=== PATIENT | male | born 1990 | race African-American/Black ===

== ENCOUNTER 2022-04-11 05:27 | Emergency (ER) | payer BC, OTHER ==
[~2022-04-11] VITALS: Ht 175 cm; Wt 72.6 kg
[2022-04-11] MEDS ORDERED: FAMOTIDINE 20 MG (PEPCID) TABLET PO STA (06:13)
[2022-04-11] MEDS ORDERED: predniSONE 20 MG TAB PO ONE (06:15)
--- NOTE | 2022-04-11 06:21 | ED General ---
General Chief Complaint: Allergic Reaction Stated Complaint: POSS ALLERGIC REACTION Nursing Triage Note: TO ED VIA POV AND AMBULATORY TO ROOM 6 AND STATES HIS "FACE IS SWOLLEN AND BODY IS RED", GENERALIZED HIVES, SOA. STATES STARTED AT 0500 AFTER EATING PEANUT BUTTER AND JELLY SANDWHICH AND THEN STATES, "I'M NOT ALLERGIC TO EITHER OF THOSE". PT ALSO STATES HE WAS "WORKING ON HIS BIKE" PRIOR TO SX. STATES HE TOOK 1 BENADRYL AFTER SYMPTOMS STARTED WITHOUT RELIEF. PT IS DIFFICULT TO OBTAIN ANSWERS TO TRIAGE QUESTIONS FROM. History of Present Illness Date Seen by Provider: Apr 11, 2022 Time Seen by Provider: 06:04 Initial Comments Here with report of hives this morning at about 5 AM. This was after eating a peanut butter and jelly sandwich. He states that he is not allergic to peanut butter. He did take a Benadryl at that time. He was also working on his motorcycle at the same time putting on the brakes. None of these actions are anything new. He states that he had hives over his whole body and he felt swelling of his face. The itching has subsequently markedly improved. Denies any significant allergies. He does vape but does not do anything else. He states that he wanted to be here to be checked out because he did not want to have a medical emergency and not have been seen and he has no phone at home and wanted to make sure that everything was okay. Timing/Duration: 1 Hour Severity: Mild, Moderate Associated Systoms: No Cough; Rash; No Shortness of Air Allergies and Home Medications Allergies Coded Allergies: No Known Drug Allergies (Unverified , 04/11/22) Patient Home Medication List Home Medication List Reviewed: Yes Review of Systems Review of Systems Constitutional: see HPI; No fever EENTM: mouth swelling; No nose congestion, No throat pain, No throat swelling Respiratory: No cough, No short of breath Gastrointestinal: No nausea, No vomiting Skin: pruritus, rash Past Lpcifya-Afuaht-Iabbau Hx Patient Social History Tobacco Use?: Yes Use of E-Cig and/or Vaping dev: Yes E-Cig or Vaping type used: Nicotine Past Medical History Surgeries: No Family Medical History Reviewed Nursing Family Hx No Pertinent Family Hx Physical Exam Vital Signs Vital Signs - First Documented 04/11/22 05:44 Temp 36.5 Pulse 121 Resp 16 B/P (MAP) 131/86 (101) Pulse Ox 98 O2 Delivery Room Air Capillary Refill : Less Than 3 Seconds Height, Weight, BMI Height: '" Weight: lbs. oz. kg; 23.00 BMI Method: General Appearance: No Apparent Distress, WD/WN HEENT: PERRL/EOMI, Pharynx Normal, Other (Patient reports that he feels slightly swollen to his lips and face but there is no difficulty swallowing, airway issues or pharyngeal swelling noted on exam.) Neck: Non Tender, Supple Respiratory: Lungs Clear, Normal Breath Sounds Cardiovascular: No Murmur, Tachycardia Neurologic/Psychiatric: Alert, Oriented x3 Skin: Normal Color, Warm/Dry; No Rash; Other (Patient does note that the hives have resolved and denies itching currently. I do not see any hives on exam.) Progress/Results/Core Measures Suspected Sepsis SIRS Temperature: Pulse: 121 Respiratory Rate: 16 Blood Pressure 131 /86 Mean: 101 Results/Orders My Orders Orders - KEVON VELA MD Famotidine Tablet (Pepcid Tablet) (04/11/22 06:13) Prednisone Tablet (Deltasone Tablet) (04/11/22 06:15) Vital Signs/I&O 04/11/22 05:44 Temp 36.5 Pulse 121 Resp 16 B/P (MAP) 131/86 (101) Pulse Ox 98 O2 Delivery Room Air Capillary Refill : Less Than 3 Seconds Blood Pressure Mean: 101 Progress Note : Progress Note Seen and evaluated. It does appear that he has had resolution of his hives after Benadryl. Unsure of inciting event but may have been the peanut butter sandwich as he had eaten that right before this started. Given this may be related to food, we will go ahead and initiate prednisone 40 mg p.o. and famotidine 20 mg p.o. now and I will continue the prednisone for a few more days. No significant airway issues noted or reported. We did discuss avoiding peanut butter. We did discuss EpiPen but will hold on that as this does not appear to be anaphylaxis. I did discuss with him about getting primary care doctor to discuss this further as he may need further prescriptions and evaluation later. He agreed with all of this. Discharged home with return precautions. Patient verbalized understanding instructions and agreement with plan. Departure Impression Primary Impression: Allergic reaction Qualified Codes: T78.40XA - Allergy, unspecified, initial encounter Disposition: HOME, SELF-CARE Condition: Improved Departure-Patient Inst. Decision time for Depature: 06:21 Referrals: NO,LOCAL PHYSICIAN (PCP/Family) Primary Care Physician Patient Instructions: Allergic Reaction ED Add. Discharge Instructions: All discharge instructions reviewed with patient and/or family. Voiced understanding. You may take nobz-[id number] Benadryl/diphenhydramine 25 mg every 6 hours as needed for itching. You may take tyfl-mma-gpgtqop Pepcid or the generic famotidine, 20 mg once or twice daily and you may take this over the next 3 to 4 days as needed. Take other medications as prescribed. You should follow-up with eye doctor of your choosing for recheck and further evaluation and to establish care. Return for increased swelling, difficulty with breathing or swallowing, wheezing, persistent hives, nausea, vomiting, abdominal pain or other concerns as needed. Scripts Prednisone (Prednisone) 20 Mg Tab 40 MG PO DAILY, #6 TAB 0 Refills Prov: KEVON VELA MD 04/11/22 KEVON VELA MD Apr 11, 2022 06:21
[2022-04-11] MEDS ORDERED: PRD20T PO (06:23)
[2022-04-11 06:29] VITALS: BP 133/81
== END 2022-04-11 06:29 | disposition home or self-care (01) ==
LOC: ER 05:30
DX: T78.1XXA Other adverse food reactions, not elsewhere classified, initial encounter (principal); F17.290 Nicotine dependence, other tobacco product, uncomplicated
CPT/HCPCS: 99283

== ENCOUNTER 2022-04-17 22:29 | Observation (INO) | payer BC ==
[~2022-04-17] VITALS: Ht 175 cm; Wt 72.5 kg
[~2022-04-17 22:29] MED LIST: PRD20T PO
[2022-04-17] MEDS ORDERED: fentaNYL INJ 100 MCG/2 ML AMP ONE (22:44)
[2022-04-17] MEDS ORDERED: ONDANSETRON 4 MG/2 ML (SDV) Z0FRAN ONE (22:44)
[2022-04-17 22:47] LABS: HEMATOCRIT 43 % (40-54); MEAN CORPUSCULAR HEMOGLOBIN 30 pg (25-34); MEAN CORPUSCULAR HGB CONC 35 g/dL (32-36); MEAN CORPUSCULAR VOLUME 86 fL (80-99); MEAN PLATELET VOLUME 9.6 fL (9.0-12.2); PLATELET COUNT 312 10^3/uL (130-400)
[2022-04-17 22:58] LABS: ALBUMIN 4.2 GM/DL (3.2-4.5); CHLORIDE 105 MMOL/L (98-107); SODIUM 140 MMOL/L (135-145)
[2022-04-17] MEDS ORDERED: ONDANSETRON 4 MG/2 ML (SDV) Z0FRAN IVP ONE (23:00)
[2022-04-17] MEDS ORDERED: fentaNYL INJ 100 MCG/2 ML AMP IVP ONE ×2 (23:00→23:15)
[2022-04-17] MEDS ORDERED: LACTATED RINGERS 1,000 ML IV SCH (23:00)
[2022-04-17] MEDS ORDERED: TETANUS,DIPTH,PERTUSS P/F (BOOSTRIX) 0.5 ML VIAL IM ONE (23:00)
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
[2022-04-17 23:01] LABS: GLUCOSE 128 MG/DL (70-105); TOTAL PROTEIN 6.4 GM/DL (6.4-8.2)
[2022-04-17 23:02] LABS: BILIRUBIN,TOTAL 0.5 MG/DL (0.1-1.0); CARBON DIOXIDE 23 MMOL/L (21-32)
[2022-04-17 23:04] LABS: ALKALINE PHOSPHATASE 55 U/L (40-136); GFR ESTIMATED 92
[2022-04-17 23:05] LABS: BUN/CREATININE RATIO 10
[2022-04-17 23:06] LABS: BILIRUBIN,DIRECT 0.2 MG/DL (0.0-0.3); BILIRUBIN,INDIRECT 0.3 MG/DL
[2022-04-17 23:07] LABS: ALANINE AMINOTRANSFERASE 83 U/L (0-55)
[2022-04-18] MEDS ORDERED: LIDOCAINE 1% INJ 10 ML VIAL ONE (00:12)
[2022-04-18] MEDS ORDERED: HOLD METFORMIN - RECEIVED CONTRAST 20 ML VIAL IV SCH (00:15)
[2022-04-18] MEDS ORDERED: NS 100 ML (IVPB) BAG IV ONE (00:15)
[2022-04-18] MEDS ORDERED: IOHEXOL 350 MG/ML 100 ML (OMNIPAQUE 350) VIAL IV ONE (00:15)
[2022-04-18] MEDS ORDERED: LIDOCAINE 1% INJ 30 ML (XYLOCAINE) VIAL INJ ONE (00:15)
[2022-04-18] MEDS ORDERED: KETOROLAC 15 MG/ML VIAL IVP ONE (02:00)
[2022-04-18] MEDS ORDERED: TETANUS,DIPTH,PERTUSS P/F (BOOSTRIX) 0.5 ML VIAL IM ONE (02:57)
[2022-04-18] MEDS ORDERED: NS IV 1000 ML 1,000 ML ONE (03:29)
[2022-04-18 03:30] VITALS: BP 128/76
[2022-04-18] MEDS: NS IV 1000 ML 1,000 ML IV SCH ×2 (03:38→13:37)
[2022-04-18] MEDS ORDERED: HYDROcodone/APAP 5 MG/325 MG (LORTAB) TAB PO PRN (03:45)
[2022-04-18] MEDS ORDERED: ONDANSETRON 4 MG/2 ML (SDV) Z0FRAN IV PRN (03:45)
[2022-04-18] MEDS ORDERED: KETOROLAC 15 MG/ML VIAL IV PRN (03:45)
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
--- NOTE | 2022-04-18 06:43 | Diagnostic Imaging Report ---
EXAMINATION: Chest 1 view HISTORY: Chest injury COMPARISON: None available. FINDINGS: The lungs are clear without edema or pneumonia. No pleural effusion or pneumothorax. Heart size is normal. IMPRESSION: 1. Clear lungs. Dictated by: Dictated on workstation # [id number]
--- NOTE | 2022-04-18 06:45 | Diagnostic Imaging Report ---
EXAMINATION: Pelvis 1 or 2 views HISTORY: Pelvic injury COMPARISON: None available. FINDINGS: Alignment is normal. No fracture is seen. Joint spaces are normal. IMPRESSION: 1. No fracture. Dictated by: Dictated on workstation # [id number]
--- NOTE | 2022-04-18 06:46 | Diagnostic Imaging Report ---
EXAMINATION: CT chest, abdomen and pelvis with intravenous contrast. TECHNIQUE: Multiple contiguous axial images were obtained through the chest, abdomen and pelvis after the uneventful administration of intravenous contrast. All CT scans use one or more of the following dose optimizing techniques: automated exposure control, MA and/or KvP adjustment based on patient size and exam type or iterative reconstruction. HISTORY: Chest and abdomen injury COMPARISON: None available. FINDINGS: There is no edema or pneumonia. No pleural effusion. No pneumothorax. No suspicious nodules. There is no axillary or supraclavicular lymphadenopathy. There is no mediastinal lymphadenopathy. Heart size is normal. There are no coronary artery calcifications. No pericardial effusion. Aorta is normal in caliber. The liver is normal without focal lesion. There is focal fat at the falciform ligament. There is no biliary ductal dilation. Gallbladder is normal. Pancreas is normal. Spleen is normal. Adrenal glands are normal. The kidneys are normal. There is no hydronephrosis. Urinary bladder is normal. Bowel is normal in caliber without obstruction or inflammation. No free fluid or air. No abdominal or pelvic lymphadenopathy. Aorta is normal in caliber without aneurysm. There are no suspicious osseus lesions. IMPRESSION: 1. No acute traumatic injury in the chest, abdomen or pelvis. There is no significant disagreement with the preliminary report. Dictated by: Dictated on workstation # [id number]
[2022-04-18 07:20] LABS: BASOPHILS # (AUTO) 0.1 10^3/uL (0.0-0.1); BASOPHILS % (AUTO) 0 % (0-10); EOSINOPHILS # (AUTO) 0.1 10^3/uL (0.0-0.3); EOSINOPHILS % (AUTO) 0 % (0-10); HEMATOCRIT 41 % (40-54); HEMOGLOBIN 14.4 g/dL (13.3-17.7); LYMPHOCYTES # (AUTO) 2.7 10^3/uL (1.0-4.0); LYMPHOCYTES % (AUTO) 15 % (12-44); MEAN CORPUSCULAR HEMOGLOBIN 30 pg (25-34); MEAN CORPUSCULAR HGB CONC 35 g/dL (32-36); MEAN CORPUSCULAR VOLUME 86 fL (80-99); MEAN PLATELET VOLUME 9.7 fL (9.0-12.2); MONOCYTES # (AUTO) 1.6 10^3/uL (0.0-1.0); MONOCYTES % (AUTO) 9 % (0-12); NEUTROPHILS # (AUTO) 13.6 10^3/uL (1.8-7.8); NEUTROPHILS % (AUTO) 75 % (42-75); PLATELET COUNT 277 10^3/uL (130-400); WHITE BLOOD COUNT 18.1 10^3/uL (4.3-11.0)
[2022-04-18 07:32] VITALS: BP 125/77
[2022-04-18 07:48] LABS: BAND NEUTROPHILS 1 %; BASOPHILS % (MANUAL) 0 %; EOSINOPHILS % (MANUAL) 0 %; LYMPHOCYTES % (MANUAL) 22 %; MONOCYTES % (MANUAL) 7 %; NEUTROPHILS % (MANUAL) 70 %; RBC MORPH NORMAL
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
[2022-04-18 12:00] VITALS: BP 118/71
[2022-04-18 15:28] VITALS: BP 114/51
[2022-04-18 19:20] VITALS: BP 134/65
[2022-04-19 00:18] VITALS: BP 130/68
[2022-04-19 03:43] VITALS: BP 123/79
[2022-04-19 05:30] LABS: HEMATOCRIT 41 % (40-54); HEMOGLOBIN 13.9 g/dL (13.3-17.7); MEAN CORPUSCULAR HEMOGLOBIN 30 pg (25-34); MEAN CORPUSCULAR HGB CONC 34 g/dL (32-36); MEAN CORPUSCULAR VOLUME 88 fL (80-99); MEAN PLATELET VOLUME 9.7 fL (9.0-12.2); PLATELET COUNT 259 10^3/uL (130-400); WHITE BLOOD COUNT 12.8 10^3/uL (4.3-11.0)
[2022-04-19 05:48] LABS: CALCIUM 8.6 MG/DL (8.5-10.1); CREATININE SERUM 0.81 MG/DL (0.60-1.30); POTASSIUM 3.6 MMOL/L (3.6-5.0)
[2022-04-19 07:38] VITALS: BP 124/75
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
[2022-04-19 11:43] VITALS: BP 117/82
--- NOTE | 2022-04-19 12:08 | Discharge Inst-Simple/Standard ---
Discharge Inst-Standard Patient Instructions/Follow Up Plan of Care/Instructions/FU: 1 Week Primary care phycisian. 1 Week Rachana No driving till cleared by Primary care physician. Activity as Tolerated: No Discharge Diet: Regular Diet Other Inst to Patient Follow up Appt: Make appointment for 1 week with primary care physician and Rachana Instructions: No lifting greater than 10 pounds. No strenuous activity. May shower in 24 hours, no tub bath or soaking. Use incentive spirometer at home as directed. No Smoking No driving till cleared by your primary care physician. Skin/Wound Care: Keep wound clean and dry. Symptoms to Report: Appetite Changes, Extremity Discoloration, Numbness/Tingling, Swelling Increased, Bleeding Excessive, Eyesight Changes, Pain Increased, Urine Color Change, Constipation(Persistent), Fever over 101 degree F, Pain/Pressure in chest, Urinating Difficulty, Cough Up/Vomit Blood, Heart Beat Irreg/Pounding, Pain/Pressure in jaw, Vaginal Bleeding Increase, Cramps in feet or legs, Lightheadedness, Pain/Pressure in shoulder, Diarrhea(Persistent), Memory Changes Suddenly, Questions/Concerns, Weight gain consecutive days, Dizziness/Fainting, Nausea/Vomiting, Shortness of Breath, Weight gain over 2 pounds If questions or concerns contact your physician Or seek help at emergency department. ANETA DAVIDSON DO Apr 19, 2022 12:08
[2022-04-19 13:31] VITALS: BP 117/82
== END 2022-04-19 12:05 | disposition home or self-care (01) ==
LOC: EDUNIT# 22:29 → ER 22:30 → 4TH 22:32 → UNDOADMOB 04-18 03:17 → 4TH 04-18 03:17 → UNDODISOB 04-19 13:25
PROVIDERS: ADMIT Surgery; ATTEND Surgery
DX: S06.0XAA Concussion with loss of consciousness status unknown, initial encounter (principal); S01.01XA Laceration without foreign body of scalp, initial encounter; S01.81XA Laceration without foreign body of other part of head, initial encounter; V23.41XA Electric (assisted) bicycle driver injured in collision with car, pick-up truck or van in traffic accident, initial encounter; S80.212A Abrasion, left knee, initial encounter; S80.211A Abrasion, right knee, initial encounter; D72.829 Elevated white blood cell count, unspecified; E87.6 Hypokalemia; F17.290 Nicotine dependence, other tobacco product, uncomplicated; Z28.310 Unvaccinated for COVID-19
CPT/HCPCS: 12002; 12011; 12032; 36415; 70450; 71045; 71260; 72125; 72170; 74177; 80048; 80076; 80320; 85007; 85027; 90471; 90715; 93041; 96361; 96374; 96375; G0378